=== PATIENT | male | born 1945 | race Caucasian/White ===

== ENCOUNTER 2017-12-11 00:47 | Day surgery (SDC) | payer MEDICARE, OTHER ==
[2016-05-29 15:39] VITALS: Ht 165.1 cm; Wt 73.9 kg
[~2017-12-11] VITALS: Ht 165.1 cm; Wt 73.9 kg
[~2017-12-11 00:47] MED LIST: ACET-2607 PO; ALLO-1 PO; ASC500 PO; ASP325 PO; ASPI-870 PO; BAC PO; BUPR300T56 PO; CEP500 PO; CEPH500T7 PO; CHOL500045 PO; CIP500 PO; CIPR-214 PO; CIPR-326 PO; CIPR-344 PO; CIPR500S3 PO; DOC100 PO; FAM20 PO; FAMO-1 IV; FAMO-67 PO; FAMO20TA28 PO; FEN145 PO; FISH OIL1 CAP PO; HYDR-318 PO; HYDR-385 PO; HYDR-389 PO; IBU600 PO; IBU800 PO; IBUP-1671 PO; IBUP600T22 PO; IBUP800T37 PO; LISI-374 PO; LOR5 PO; LOR5/325 PO; LUTE6CAP11 PO; MULT1CAP41 PO; MYLL PO; NICO-218 TD; NICO1PAT45 TD; PHEN200T32 PO; PHENA200 PO; PLAN450T3 PO; POTA99TA12 PO; PSYL0.5240 PO; PSYP PO; SAW160CA24 PO; TAMS0.4C76 PO; TRI100 PO; TRIMETHOPRIM PO; VITA1CAP46 PO; [UNRECOGNIZED DRUG - CODE] PO; [UNRECOGNIZED DRUG - CODE] PO
--- NOTE | 2017-12-11 12:04 | EKG ---
FACILITY: [facility] PATIENT NAME: REANNA ANGELO : [id number] MR: [id number] V: [id number] EXAM DATE: ORDERING PHYSICIAN: REANNA FARIAS TECHNOLOGIST: HANNAH Giraldo Reason : BLADDER Blood Pressure : / mmHG Vent. Rate : 098 BPM Atrial Rate : 098 BPM P-R Int : 134 ms QRS Dur : 084 ms QT Int : 340 ms P-R-T Axes : 066 044 038 degrees QTc Int : 434 ms Normal sinus rhythm Normal ECG When compared with ECG of 14-NOV-2016 08:26, Unchanged Confirmed by FATEMEH THACKER ([id number]) on 12/11/2017 2:40:26 PM Referred By: DINORA Confirmed By:FATEMEH THACKER
[2017-12-11 12:10] VITALS: BP 120/81
[2017-12-11] MEDS ORDERED: fentaNYL CITR 100 MCG/2 ML AMP ONE ×2 (13:02→14:18)
[2017-12-11] MEDS ORDERED: LIDOCAINE 2% IV 100 MG/5ML SYR ONE (13:03)
[2017-12-11] MEDS ORDERED: PROPOFOL EMUL(*) 10MG/ML 20 ML 20 ML ONE ×2 (13:03→14:15)
[2017-12-11] MEDS ORDERED: OXYCHLOROSENE SOD 2 GM BTL 2 GM in WATER STERILE IRRIG(*) 1000ML 1,000 ML IR ONE (13:30)
[2017-12-11] MEDS ORDERED: DEXAMETHASONE SOD 4 MG/ML VIAL ONE ×2 (13:53→15:01)
[2017-12-11] MEDS ORDERED: LIDOCAINE/SOD BICARB 8.4% SYR ID ONE (13:55)
[2017-12-11] MEDS ORDERED: GENTAMICIN(*) 80 MG/2 ML VIAL 160 MG in NS(*) 0.9% 100 ML BAG 100 ML IVPB ONE (13:55)
[2017-12-11] MEDS ORDERED: MIDAZOLAM 2 MG/2 ML VIAL IVP PRN (13:55)
[2017-12-11] MEDS ORDERED: NORMOSOL R SOLN(*) 1000 ML BAG 1,000 ML IV PRN (13:55)
[2017-12-11] MEDS ORDERED: FAMOTIDINE 20 MG TAB PO ONE (13:55)
[2017-12-11] MEDS ORDERED: ePHEDrine 25 MG/5 ML DISP.SYR IVP ONE ×2 (14:15)
[2017-12-11] MEDS ORDERED: ONDANSETRON 4 MG/2 ML VIAL ONE ×2 (14:19→15:03)
[2017-12-11] MEDS ORDERED: mitoMYcin 20 MG VIAL 40 MG in WATER STERILE FOR INJ 50 ML VL 40 ML IR ONE (15:45)
[2017-12-11] MEDS ORDERED: PHEN200T32 PO (15:50)
[2017-12-11] MEDS ORDERED: FAMO20TA28 PO (15:50)
[2017-12-11] MEDS ORDERED: CIPR-214 PO (15:51)
[2017-12-11 16:00] VITALS: BP 109/55
[2017-12-11 16:15] VITALS: BP 117/79
[2017-12-11 16:35] VITALS: BP 135/88
[2017-12-11 16:37] VITALS: BP 120/77
--- NOTE | 2017-12-11 19:28 | OPERATIVE REPORT 1 ---
EVENT DATE: December 11, 2017 SURGEON: Kodi Siddiqi MD ANESTHESIOLOGIST: Iker Madrid MD ANESTHESIA: General anesthetic. PREOPERATIVE DIAGNOSES 1. Possible recurrent bladder cancer. 2. Positive FISH test. POSTOPERATIVE DIAGNOSES 1. Possible recurrent bladder cancer. 2. Positive FISH test. 3. Three inflammatory lesions of the bladder. PROCEDURES PERFORMED 1. Cystourethroscopy. 2. Biopsies of three inflammatory lesions of the bladder. 3. Hydrodistention of the bladder. 4. Fulguration of inflammatory lesions of the bladder. 5. Clorpactin bladder treatment. 6. Mitomycin-C 40 mg bladder treatment. DESCRIPTION OF PROCEDURE Under general anesthetic, the patient was prepped and draped in an extended lithotomy position. The 21 panendoscope admitted through the urethra into the bladder. Urethra was normal appearing. The prostate showed satisfactory resection. It was wide open. Bladder showed 4+ trabeculation. There was approximately a 1.5 cm inflammatory lesion just proximal to the right ureteral orifice approximately one inch on the posterior wall. There was another inflammatory lesion left lateral anterior bladder neck area of the bladder times two that were approximately 1 cm in their greatest diameter. Biopsies were obtained from the three lesions. The inflammatory lesions were vaporized which were fulgurated in their entirety. The bladder filled under gravity flow to approximately 500 mg. On drainage of the bladder, there was no bloody drainage. On reinspection of the bladder, there were no glomerulations. Bladder was filled under gravity flow with Clorpactin solution. The Clorpactin solution was left in contact with the bladder for approximately five minutes. Bladder was drained. On reinspection of the bladder, there was mild erythema of the bladder surface. No bleeding from the biopsy and/or fulguration of the inflammatory lesions. The bladder was irrigated free of Clorpactin solution. An 18 coude-tipped Enriquez was left indwelling and was plugged to place mitomycin- C 40 mg into the bladder for bladder surface treatment. Patient returned to the recovery room in satisfactory condition. This is a 73-year-old white male complaining of bladder cancer and a positive FISH test. Options were discussed with the patient. He was agreeable to followup cystourethroscopy and treatment of his lesions that might be causing a possible problem. This has been accomplished. See operative note for details. I could not see any definite papillary lesions of the bladder. There were just surface inflammatory lesions. There was absolutely no ulceration of the lesions in my opinion at least visibly. Patient will be ready for discharge home when alert and functional. Force fluids 2 L per day. Activities are restricted to careful ambulation. He is to continue his usual medications. Copy of instructions was given to the patient. He is to call me if he has any problems. He is going to receive a mitomycin- C bladder treatment in the recovery room. He will be discharged on Cipro, Pepcid, Pyridium therapy. MTDD
== END 2017-12-11 16:00 | disposition home or self-care (01) ==
LOC: OR 00:47
DX: C67.9 Malignant neoplasm of bladder, unspecified (principal); I10 Essential (primary) hypertension
CPT/HCPCS: 51720; 52234; 81001; 87088; 88305; 93005; A9270; J1100; J1580; J2001; J2405; J2704; J3010; J7050; J9280